=== PATIENT | female | born 1965 | race Two or more races ===

== ENCOUNTER 2016-07-22 09:21 | Inpatient (IN) | payer SELFPAY ==
[~2016-07-22 09:21] MED LIST: AMOXICILLIN500 M PO; ASPIRIN81 MG PO; AUGMENTIN 875-11 TAB PO; BACTRIM DS TABL1 TAB PO; CIPRO250 MG PO; ELAVIL25 MG PO; FLOMAX0.4 MG PO; IBUPROFEN200 MG; IBUPROFEN600 MG PO; IRON1 TA1 PO; LEVOTHYROXINE112 MC3 PO; LEVOTHYROXINE112 MCG PO; LEVOTHYROXINE125 MCG PO; LEVOXYL137 MCG PO; LEVOXYL175 MCG; MELOXICAM15 M1 PO; MUCINEX DM TABL1 BOX PO; NEXIUM20 MG PO; NO MEDS; NORCO 5-325 TA1 EACH PO; NORCO 5/325 TAB1 TAB PO; NORCO 7.5/325 T1 TAB PO; OMEPRAZOLE20 M2 PO; OMEPRAZOLE20 M3 PO; PEPCID20 M1 PO; PERCOCET 5/3251 TAB PO; PHENERGAN25 M1 PO; PHENERGAN25 MG PO; PRILOSEC40 MG PO; SYNTHROID150 MC1 PO; TRAMADOL HCL50 MG PO; TYLENOL EXTRA500 M1 PO; ZITHROMAX250 M1 PO
[2016-07-22 10:20] LABS: BASO % 0.2 % (0-2); EOS % 5.4 % (0-7); EOSINOPHIL ABSOLUTE COUNT 0.7 tho/cmm (0.0-0.7); HCT-HEMATOCRIT 42.7 % (34.0-49.0); HGB-HEMOGLOBIN 13.9 gm/dl (12.0-15.5); IMMATURE GRANULOCYTES ABSOLUTE 0.05 tho/cmm (0-0.03); IMMATURE GRANULOCYTES PERCENT 0.4 % (0-0.3); LYMPH % 24.9 % (20-45); MCH (MEAN CORPUSCULAR HGB) 26.4 pg (28.0-32.0); MCHC MEAN CORPUSCULAR HGB CONC 32.6 % (32.0-36.0); MCV (MEAN CELL VOLUME) 81.2 fl (82.0-96.0); MEAN PLATELET VOLUME 9.7 cmc (9.4-12.4); MONO % 3.8 % (0-12); MONOCYTE ABSOLUTE COUNT 0.5 tho/cmm (0.0-1.2); NEUTROPHIL ABSOLUTE COUNT 7.9 tho/cmm (1.6-8.0); NEUTROPHIL-AUTOMATED 7.9 tho/cmm (1.6-8.0); NEUTROPHILS % 65.3 % (40-80); PLATELET COUNT 413 tho/cmm (150-450); RED BLOOD COUNT 5.26 mil/cmm (4.00-5.20); RED CELL DISTRIBUTION WIDTH 17.7 % (12.4-16.4); WHITE BLOOD COUNT 12.2 tho/cmm (4.0-10.0)
[2016-07-22 10:26] LABS: ALB/GLOB RATIO 0.7 (0.8-2.0); ALBUMIN 4.4 g/dl (3.5-5.0); ALKALINE PHOSPHATASE 226 U/L (33-138); ALT/SGPT 33 U/L (12-78); ANION GAP 19 mmol/L (0-20); AST/SGOT 17 U/L (10-40); BILIRUBIN,TOTAL 0.3 mg/dl (0-1.5); BLOOD UREA NITROGEN 25 mg/dl (6-24); C-REACTIVE PROTEIN 3.2 mg/dl (0-0.9); CALCIUM 9.8 mg/dl (8.5-10.5); CARBON DIOXIDE-VENOUS 10 mmol/L (22-32); CHLORIDE 113 mmol/l (96-110); CREATININE 2.36 mg/dl (0.50-1.10); GLUCOSE 111 mg/dL (70-110); LIPASE 708 U/L (73-393); POTASSIUM 3.4 mmol/L (3.7-5.1); SODIUM 139 mmol/L (135-145); eGFR VALUE FOR BLACK 27 mL/Min
[2016-07-22] MEDS ORDERED: OMEPRAZOLE20 M3 PO (11:54)
[2016-07-22] MEDS ORDERED: PREDNISONE5 M1 PO (11:54)
[2016-07-22 14:43] LABS: MAGNESIUM 2.9 mg/dl (1.8-2.6); PHOSPHOROUS 4.3 mg/dl (2.5-4.9)
--- NOTE | 2016-07-22 21:24 | NUR ---
VIRTUAL CARE NOTE: ASSESSMENT DEFERRED. PT IS NON GEORGIAN SPEAKING. FAMILY IS PRESENT BUT BOTH ARE SLEEPING. WILL CONTINUE WITH CHART REVIEW.
[2016-07-23 06:08] LABS: BASO % 0.2 % (0-2); EOS % 7.3 % (0-7); EOSINOPHIL ABSOLUTE COUNT 0.6 tho/cmm (0.0-0.7); HGB-HEMOGLOBIN 11.2 gm/dl (12.0-15.5); IMMATURE GRANULOCYTES ABSOLUTE 0.11 tho/cmm (0-0.03); IMMATURE GRANULOCYTES PERCENT 1.4 % (0-0.3); LYMPH % 26.6 % (20-45); LYMPH ABSOLUTE COUNT 2.2 tho/cmm (0.8-4.5); MCV (MEAN CELL VOLUME) 81.9 fl (82.0-96.0); MEAN PLATELET VOLUME 9.3 cmc (9.4-12.4); MONO % 4.4 % (0-12); MONOCYTE ABSOLUTE COUNT 0.4 tho/cmm (0.0-1.2); NEUTROPHIL ABSOLUTE COUNT 4.9 tho/cmm (1.6-8.0); NEUTROPHIL-AUTOMATED 4.9 tho/cmm (1.6-8.0); NEUTROPHILS % 60.1 % (40-80); PLATELET COUNT 305 tho/cmm (150-450); RED BLOOD COUNT 4.52 mil/cmm (4.00-5.20); RED CELL DISTRIBUTION WIDTH 17.9 % (12.4-16.4); WHITE BLOOD COUNT 8.1 tho/cmm (4.0-10.0)
[2016-07-23 06:11] LABS: MCH (MEAN CORPUSCULAR HGB) 24.8 pg (28.0-32.0); MCHC MEAN CORPUSCULAR HGB CONC 30.3 % (32.0-36.0)
[2016-07-23 06:30] LABS: ALB/GLOB RATIO 0.7 (0.8-2.0); ALBUMIN 2.9 g/dl (3.5-5.0); ALKALINE PHOSPHATASE 160 U/L (33-138); ALT/SGPT 24 U/L (12-78); AMYLASE 103 U/L (20-90); ANION GAP 16 mmol/L (0-20); AST/SGOT 22 U/L (10-40); BILIRUBIN,TOTAL 0.2 mg/dl (0-1.5); BLOOD UREA NITROGEN 20 mg/dl (6-24); CALCIUM 7.9 mg/dl (8.5-10.5); CARBON DIOXIDE-VENOUS 11 mmol/L (22-32); CHLORIDE 122 mmol/l (96-110); CHOLESTEROL 153 mg/dl (120-200); GLUCOSE 80 mg/dL (70-110); HDL CHOLESTEROL 44 mg/dl (40-60); LDL CHOLESTEROL 82 mg/dl (0-99); LIPASE 615 U/L (73-393); POTASSIUM 3.4 mmol/L (3.7-5.1); SODIUM 146 mmol/L (135-145); TRIGLYCERIDES 136 mg/dl (<149); VLDL 27 mg/dl (0-30); eGFR VALUE FOR BLACK 35 mL/Min
--- NOTE | 2016-07-23 16:09 | NUR ---
VIRTAUL CARE NOTE: PT AWAKE RESTING IN BED, FAMILY AT BEDSIDE. PT/FAMILY NON-CHADIAN SPEAKING, DO NOT UNDERSTAND CHADIAN. VN ROUND DEFERRED. [employer] INTERPRETATION SYSTEM NOTED TO BE AT BEDSIDE.
[2016-07-24 07:17] LABS: BASO % 0.3 % (0-2); EOS % 6.1 % (0-7); EOSINOPHIL ABSOLUTE COUNT 0.4 tho/cmm (0.0-0.7); HCT-HEMATOCRIT 37.5 % (34.0-49.0); HGB-HEMOGLOBIN 11.6 gm/dl (12.0-15.5); IMMATURE GRANULOCYTES ABSOLUTE 0.26 tho/cmm (0-0.03); IMMATURE GRANULOCYTES PERCENT 3.7 % (0-0.3); LYMPH % 27.3 % (20-45); LYMPH ABSOLUTE COUNT 1.9 tho/cmm (0.8-4.5); MCH (MEAN CORPUSCULAR HGB) 25.2 pg (28.0-32.0); MCHC MEAN CORPUSCULAR HGB CONC 30.9 % (32.0-36.0); MCV (MEAN CELL VOLUME) 81.5 fl (82.0-96.0); MEAN PLATELET VOLUME 9.2 cmc (9.4-12.4); MONO % 3.5 % (0-12); MONOCYTE ABSOLUTE COUNT 0.3 tho/cmm (0.0-1.2); NEUTROPHIL ABSOLUTE COUNT 4.2 tho/cmm (1.6-8.0); NEUTROPHIL-AUTOMATED 4.2 tho/cmm (1.6-8.0); NEUTROPHILS % 59.1 % (40-80); PLATELET COUNT 309 tho/cmm (150-450); RED CELL DISTRIBUTION WIDTH 17.9 % (12.4-16.4); WHITE BLOOD COUNT 7.1 tho/cmm (4.0-10.0)
[2016-07-24 07:46] LABS: BLOOD UREA NITROGEN 13 mg/dl (6-24); CALCIUM 8.1 mg/dl (8.5-10.5); CARBON DIOXIDE-VENOUS 13 mmol/L (22-32); CHLORIDE 122 mmol/l (96-110); CREATININE 1.93 mg/dl (0.50-1.10); GLUCOSE 72 mg/dL (70-110); SODIUM 145 mmol/L (135-145); eGFR VALUE FOR BLACK 35 mL/Min
[2016-07-24 07:54] LABS: ANION GAP 14 mmol/L (0-20); LIPASE 819 U/L (73-393)
[2016-07-24 07:55] LABS: MAGNESIUM 2.2 mg/dl (1.8-2.6); POTASSIUM 4.1 mmol/L (3.7-5.1)
[2016-07-25 05:41] LABS: BASO % 0.2 % (0-2); EOS % 7.5 % (0-7); EOSINOPHIL ABSOLUTE COUNT 0.4 tho/cmm (0.0-0.7); HCT-HEMATOCRIT 31.2 % (34.0-49.0); HGB-HEMOGLOBIN 9.9 gm/dl (12.0-15.5); IMMATURE GRANULOCYTES ABSOLUTE 0.06 tho/cmm (0-0.03); IMMATURE GRANULOCYTES PERCENT 1.1 % (0-0.3); LYMPH % 29.7 % (20-45); LYMPH ABSOLUTE COUNT 1.6 tho/cmm (0.8-4.5); MCH (MEAN CORPUSCULAR HGB) 24.9 pg (28.0-32.0); MCHC MEAN CORPUSCULAR HGB CONC 31.7 % (32.0-36.0); MCV (MEAN CELL VOLUME) 78.6 fl (82.0-96.0); MEAN PLATELET VOLUME 8.9 cmc (9.4-12.4); MONO % 6.4 % (0-12); MONOCYTE ABSOLUTE COUNT 0.3 tho/cmm (0.0-1.2); NEUTROPHIL ABSOLUTE COUNT 2.9 tho/cmm (1.6-8.0); NEUTROPHIL-AUTOMATED 2.9 tho/cmm (1.6-8.0); NEUTROPHILS % 55.1 % (40-80); PLATELET COUNT 280 tho/cmm (150-450); RED BLOOD COUNT 3.97 mil/cmm (4.00-5.20); RED CELL DISTRIBUTION WIDTH 17.5 % (12.4-16.4); WHITE BLOOD COUNT 5.3 tho/cmm (4.0-10.0)
[2016-07-25 05:56] LABS: ALB/GLOB RATIO 0.7 (0.8-2.0); ALBUMIN 2.7 g/dl (3.5-5.0); ALKALINE PHOSPHATASE 126 U/L (33-138); ALT/SGPT 21 U/L (12-78); AST/SGOT 19 U/L (10-40); BLOOD UREA NITROGEN 8 mg/dl (6-24); CALCIUM 7.5 mg/dl (8.5-10.5); CARBON DIOXIDE-VENOUS 26 mmol/L (22-32); CHLORIDE 110 mmol/l (96-110); GLUCOSE 78 mg/dL (70-110); MAGNESIUM 1.9 mg/dl (1.8-2.6); PHOSPHOROUS 1.8 mg/dl (2.5-4.9); SODIUM 143 mmol/L (135-145); eGFR VALUE FOR BLACK 40 mL/Min
[2016-07-25 05:59] LABS: ANION GAP 10 mmol/L (0-20); BILIRUBIN,TOTAL 0.5 mg/dl (0-1.5); POTASSIUM 2.9 mmol/L (3.7-5.1)
[2016-07-25] MEDS ORDERED: TRAMADOL HCL50 M2 PO (15:09)
[2016-07-25] MEDS ORDERED: LOPERAMIDE2 M2 PO (15:10)
[2016-07-25] MEDS ORDERED: CYCLOBENZAPRINE5 M1 PO (15:10)
[2016-07-25] MEDS ORDERED: POTASSIUM CHLO20 ME3 PO (15:11)
[2016-09-10] MEDS ORDERED: [UNRECOGNIZED DRUG - REMARK] (16:19)
[2016-09-28] MEDS ORDERED: PROMETHAZINE HC25 M3 PO ×2 (18:00→18:01)
[2016-10-01] MEDS ORDERED: CEFDINIR300 M1 PO (09:36)
[2016-12-25] MEDS ORDERED: SYNTHROID125 MC1 PO (07:51)
[2016-12-25] MEDS ORDERED: MACRODANTIN50 M2 PO (07:52)
[2016-12-25] MEDS ORDERED: NORCO 5-325 TA1 EACH PO (09:15)
[2016-12-25] MEDS ORDERED: LEVAQUIN500 M1 PO (09:15)
[2016-12-25] MEDS ORDERED: FLAGYL500 M1 PO (09:15)
[2016-12-25] MEDS ORDERED: COMPAZINE10 MG PO (09:15)
== END 2016-07-25 15:40 | DRG 391 ==
LOC: EDMED 09:21 → EMR2 15:22 → 5WD 15:25
PROVIDERS: Emergency Medicine; Internal Medicine; Internal Medicine Cardiovascular Disease; ADMIT Family Medicine
PROC: 02HV33Z Insertion of Infusion Device into Superior Vena Cava, Percutaneous Approach (ICD-10-PCS; principal; 2016-07-24)
DX: A08.4 Viral intestinal infection, unspecified (principal); K85.90 Acute pancreatitis without necrosis or infection, unspecified; N17.9 Acute kidney failure, unspecified; E87.2 Acidosis; E87.1 Hypo-osmolality and hyponatremia; E87.6 Hypokalemia; D64.9 Anemia, unspecified; K21.9 Gastro-esophageal reflux disease without esophagitis; M06.9 Rheumatoid arthritis, unspecified; E89.0 Postprocedural hypothyroidism; M54.2 Cervicalgia; Z79.52 Long term (current) use of systemic steroids; F50.89 Other specified eating disorder; E66.9 Obesity, unspecified; Z68.30 Body mass index [BMI] 30.0-30.9, adult; N18.9 Chronic kidney disease, unspecified
CPT/HCPCS: C1751; J1170; J2405; J7030; J7512

== ENCOUNTER 2016-08-12 16:08 | Inpatient (IN) | payer SELFPAY ==
[~2016-08-12 16:08] MED LIST changes: +CYCLOBENZAPRINE5 M1 PO; +LOPERAMIDE2 M2 PO; +POTASSIUM CHLO20 ME3 PO; +PREDNISONE5 M1 PO; +TRAMADOL HCL50 M2 PO
[2016-08-12 16:39] LABS: BASO % 0.1 % (0-2); EOS % 2.1 % (0-7); EOSINOPHIL ABSOLUTE COUNT 0.2 tho/cmm (0.0-0.7); HCT-HEMATOCRIT 38.4 % (34.0-49.0); IMMATURE GRANULOCYTES ABSOLUTE 0.04 tho/cmm (0-0.03); IMMATURE GRANULOCYTES PERCENT 0.4 % (0-0.3); LYMPH % 16.1 % (20-45); LYMPH ABSOLUTE COUNT 1.6 tho/cmm (0.8-4.5); MCH (MEAN CORPUSCULAR HGB) 25.9 pg (28.0-32.0); MCHC MEAN CORPUSCULAR HGB CONC 31.3 % (32.0-36.0); MCV (MEAN CELL VOLUME) 82.8 fl (82.0-96.0); MEAN PLATELET VOLUME 9.4 cmc (9.4-12.4); MONO % 6.4 % (0-12); MONOCYTE ABSOLUTE COUNT 0.6 tho/cmm (0.0-1.2); NEUTROPHIL ABSOLUTE COUNT 7.6 tho/cmm (1.6-8.0); NEUTROPHIL-AUTOMATED 7.6 tho/cmm (1.6-8.0); NEUTROPHILS % 74.9 % (40-80); PLATELET COUNT 315 tho/cmm (150-450); RED BLOOD COUNT 4.64 mil/cmm (4.00-5.20); RED CELL DISTRIBUTION WIDTH 18.1 % (12.4-16.4); WHITE BLOOD COUNT 10.1 tho/cmm (4.0-10.0)
[2016-08-12 16:56] LABS: ALB/GLOB RATIO 0.6 (0.8-2.0); ALBUMIN 3.2 g/dl (3.5-5.0); ALKALINE PHOSPHATASE 186 U/L (33-138); ALT/SGPT 52 U/L (12-78); ANION GAP 15 mmol/L (0-20); AST/SGOT 44 U/L (10-40); BILIRUBIN,TOTAL 0.3 mg/dl (0-1.5); BLOOD UREA NITROGEN 16 mg/dl (6-24); CALCIUM 9.1 mg/dl (8.5-10.5); CARBON DIOXIDE-VENOUS 23 mmol/L (22-32); CHLORIDE 107 mmol/l (96-110); CREATININE 1.65 mg/dl (0.50-1.10); GLUCOSE 110 mg/dL (70-110); LIPASE 738 U/L (73-393); POTASSIUM 4.1 mmol/L (3.7-5.1); SODIUM 141 mmol/L (135-145); eGFR VALUE FOR BLACK 42 mL/Min
[2016-08-12 17:54] LABS: URINE BILIRUBIN NEGATIVE (NEG); URINE BLOOD MODERATE (NEG); URINE GLUCOSE (UA) NEGATIVE (NEG); URINE KETONE NEGATIVE (NEG); URINE LEUKOCYTE ESTERASE POSITIVE (NEG); URINE NITRITE NEGATIVE (NEG); URINE PROTEIN SMALL (NEG); URINE SPECIFIC GRAVITY 1.005 (1.003-1.030)
[2016-08-12 17:55] LABS: URINE APPEARANCE CLEAR; URINE COLOR YELLOW
[2016-08-12 18:00] LABS: URINE BACTERIA 1+
[2016-08-12 22:45] LABS: TSH-THYROID STIMULATING HORM. 0.53 uIU/ml (0.40-3.80)
[2016-08-13 05:57] LABS: BASO % 0.1 % (0-2); EOS % 4.3 % (0-7); EOSINOPHIL ABSOLUTE COUNT 0.3 tho/cmm (0.0-0.7); HCT-HEMATOCRIT 34.9 % (34.0-49.0); HGB-HEMOGLOBIN 10.5 gm/dl (12.0-15.5); IMMATURE GRANULOCYTES ABSOLUTE 0.01 tho/cmm (0-0.03); IMMATURE GRANULOCYTES PERCENT 0.1 % (0-0.3); LYMPH % 24.3 % (20-45); LYMPH ABSOLUTE COUNT 1.6 tho/cmm (0.8-4.5); MCHC MEAN CORPUSCULAR HGB CONC 30.1 % (32.0-36.0); MCV (MEAN CELL VOLUME) 83.1 fl (82.0-96.0); MEAN PLATELET VOLUME 9.3 cmc (9.4-12.4); MONO % 5.6 % (0-12); MONOCYTE ABSOLUTE COUNT 0.4 tho/cmm (0.0-1.2); NEUTROPHIL ABSOLUTE COUNT 4.4 tho/cmm (1.6-8.0); NEUTROPHIL-AUTOMATED 4.4 tho/cmm (1.6-8.0); NEUTROPHILS % 65.6 % (40-80); PLATELET COUNT 274 tho/cmm (150-450); RED CELL DISTRIBUTION WIDTH 18.2 % (12.4-16.4); WHITE BLOOD COUNT 6.8 tho/cmm (4.0-10.0)
[2016-08-13 10:58] LABS: ANION GAP 14 mmol/L (0-20); BLOOD UREA NITROGEN 12 mg/dl (6-24); CALCIUM 8.3 mg/dl (8.5-10.5); CARBON DIOXIDE-VENOUS 22 mmol/L (22-32); CHLORIDE 111 mmol/l (96-110); CREATININE 1.57 mg/dl (0.50-1.10); GLUCOSE 93 mg/dL (70-110); POTASSIUM 4.5 mmol/L (3.7-5.1); SODIUM 142 mmol/L (135-145); eGFR VALUE FOR BLACK 44 mL/Min
[2016-08-14 04:30] LABS: BASO % 0.2 % (0-2); EOS % 3.6 % (0-7); EOSINOPHIL ABSOLUTE COUNT 0.2 tho/cmm (0.0-0.7); HGB-HEMOGLOBIN 10.1 gm/dl (12.0-15.5); IMMATURE GRANULOCYTES ABSOLUTE 0.02 tho/cmm (0-0.03); IMMATURE GRANULOCYTES PERCENT 0.3 % (0-0.3); LYMPH % 28.5 % (20-45); LYMPH ABSOLUTE COUNT 1.8 tho/cmm (0.8-4.5); MCHC MEAN CORPUSCULAR HGB CONC 29.7 % (32.0-36.0); MCV (MEAN CELL VOLUME) 84.2 fl (82.0-96.0); MEAN PLATELET VOLUME 9.7 cmc (9.4-12.4); MONO % 5.9 % (0-12); MONOCYTE ABSOLUTE COUNT 0.4 tho/cmm (0.0-1.2); NEUTROPHIL ABSOLUTE COUNT 3.9 tho/cmm (1.6-8.0); NEUTROPHIL-AUTOMATED 3.9 tho/cmm (1.6-8.0); NEUTROPHILS % 61.5 % (40-80); PLATELET COUNT 288 tho/cmm (150-450); RED BLOOD COUNT 4.04 mil/cmm (4.00-5.20); RED CELL DISTRIBUTION WIDTH 18.4 % (12.4-16.4); WHITE BLOOD COUNT 6.4 tho/cmm (4.0-10.0)
[2016-08-14 04:31] LABS: ANION GAP 14 mmol/L (0-20); BLOOD UREA NITROGEN 10 mg/dl (6-24); CALCIUM 8.8 mg/dl (8.5-10.5); CARBON DIOXIDE-VENOUS 19 mmol/L (22-32); CHLORIDE 123 mmol/l (96-110); CREATININE 1.53 mg/dl (0.50-1.10); GLUCOSE 83 mg/dL (70-110); MAGNESIUM 2.4 mg/dl (1.8-2.6); POTASSIUM 4.5 mmol/L (3.7-5.1); eGFR VALUE FOR BLACK 46 mL/Min
[2016-08-14 04:41] LABS: SODIUM 151 mmol/L (135-145)
[2016-08-14 17:10] LABS: PHOSPHOROUS 3.2 mg/dl (2.5-4.9)
[2016-08-15 05:58] LABS: BASO % 0.3 % (0-2); EOS % 3.4 % (0-7); EOSINOPHIL ABSOLUTE COUNT 0.3 tho/cmm (0.0-0.7); HGB-HEMOGLOBIN 10.1 gm/dl (12.0-15.5); IMMATURE GRANULOCYTES ABSOLUTE 0.03 tho/cmm (0-0.03); IMMATURE GRANULOCYTES PERCENT 0.4 % (0-0.3); LYMPH % 29.8 % (20-45); LYMPH ABSOLUTE COUNT 2.2 tho/cmm (0.8-4.5); MCH (MEAN CORPUSCULAR HGB) 25.3 pg (28.0-32.0); MCHC MEAN CORPUSCULAR HGB CONC 30.6 % (32.0-36.0); MCV (MEAN CELL VOLUME) 82.5 fl (82.0-96.0); MEAN PLATELET VOLUME 9.6 cmc (9.4-12.4); MONO % 5.2 % (0-12); MONOCYTE ABSOLUTE COUNT 0.4 tho/cmm (0.0-1.2); NEUTROPHIL ABSOLUTE COUNT 4.5 tho/cmm (1.6-8.0); NEUTROPHIL-AUTOMATED 4.5 tho/cmm (1.6-8.0); NEUTROPHILS % 60.9 % (40-80); PLATELET COUNT 298 tho/cmm (150-450); RED CELL DISTRIBUTION WIDTH 18.1 % (12.4-16.4); WHITE BLOOD COUNT 7.3 tho/cmm (4.0-10.0)
[2016-08-15 06:04] LABS: ALB/GLOB RATIO 0.6 (0.8-2.0); ALBUMIN 2.7 g/dl (3.5-5.0); ALKALINE PHOSPHATASE 137 U/L (33-138); ALT/SGPT 53 U/L (12-78); ANION GAP 14 mmol/L (0-20); AST/SGOT 24 U/L (10-40); BILIRUBIN,TOTAL 0.2 mg/dl (0-1.5); BLOOD UREA NITROGEN 8 mg/dl (6-24); CALCIUM 8.6 mg/dl (8.5-10.5); CARBON DIOXIDE-VENOUS 20 mmol/L (22-32); CHLORIDE 112 mmol/l (96-110); GLUCOSE 93 mg/dL (70-110); POTASSIUM 4.3 mmol/L (3.7-5.1); SODIUM 142 mmol/L (135-145); eGFR VALUE FOR BLACK 47 mL/Min
[2016-08-16] MEDS ORDERED: PROMETHAZINE HC25 M3 PO (15:08)
[2016-09-10] MEDS ORDERED: [UNRECOGNIZED DRUG - REMARK] (16:19)
[2016-09-28] MEDS ORDERED: PROMETHAZINE HC25 M3 PO ×2 (18:00→18:01)
[2016-10-01] MEDS ORDERED: CEFDINIR300 M1 PO (09:36)
[2016-12-25] MEDS ORDERED: SYNTHROID125 MC1 PO (07:51)
[2016-12-25] MEDS ORDERED: MACRODANTIN50 M2 PO (07:52)
[2016-12-25] MEDS ORDERED: LEVAQUIN500 M1 PO (09:15)
[2016-12-25] MEDS ORDERED: FLAGYL500 M1 PO (09:15)
[2016-12-25] MEDS ORDERED: NORCO 5-325 TA1 EACH PO (09:15)
[2016-12-25] MEDS ORDERED: COMPAZINE10 MG PO (09:15)
== END 2016-08-16 16:35 | DRG 392 ==
LOC: EDMED 16:08 → EMR2 19:27 → 5WE 23:01
PROVIDERS: Emergency Medicine; Internal Medicine; Nurse Practitioner Acute Care; Specialist; ADMIT Family Medicine
PROC: 3E0F7GC Introduction of Other Therapeutic Substance into Respiratory Tract, Via Natural or Artificial Opening (ICD-10-PCS; principal; 2016-08-13)
PROC: 0DBL8ZX Excision of Transverse Colon, Via Natural or Artificial Opening Endoscopic, Diagnostic (ICD-10-PCS; principal; 2016-08-13)
PROC: 0DB78ZX Excision of Stomach, Pylorus, Via Natural or Artificial Opening Endoscopic, Diagnostic (ICD-10-PCS; principal; 2016-08-13)
PROC: 0DB98ZX Excision of Duodenum, Via Natural or Artificial Opening Endoscopic, Diagnostic (ICD-10-PCS; principal; 2016-08-13)
PROC: 0DBM8ZX Excision of Descending Colon, Via Natural or Artificial Opening Endoscopic, Diagnostic (ICD-10-PCS; principal; 2016-08-13)
PROC: 0DBK8ZX Excision of Ascending Colon, Via Natural or Artificial Opening Endoscopic, Diagnostic (ICD-10-PCS; principal; 2016-08-13)
PROC: 0DB68ZX Excision of Stomach, Via Natural or Artificial Opening Endoscopic, Diagnostic (ICD-10-PCS; principal; 2016-08-13)
PROC: 0DBN8ZX Excision of Sigmoid Colon, Via Natural or Artificial Opening Endoscopic, Diagnostic (ICD-10-PCS; principal; 2016-08-13)
DX: K29.60 Other gastritis without bleeding (principal); N17.9 Acute kidney failure, unspecified; K44.9 Diaphragmatic hernia without obstruction or gangrene; M06.9 Rheumatoid arthritis, unspecified; N18.9 Chronic kidney disease, unspecified; K57.30 Diverticulosis of large intestine without perforation or abscess without bleeding; E89.0 Postprocedural hypothyroidism; N20.0 Calculus of kidney
CPT/HCPCS: J0696; J2270; J2405; J2543; J3480; J7030; J7050; J7512; P9612

== ENCOUNTER 2016-09-01 06:03 | Day surgery (SDC) | payer SELFPAY ==
[~2016-09-01 06:03] MED LIST changes: +PROMETHAZINE HC25 M3 PO
[2016-09-01 07:54] LABS: INR 0.9 INR (0.9-1.1); PROTHROMBIN TIME 10.6 SECONDS (9.0-13.6)
[2016-09-10] MEDS ORDERED: [UNRECOGNIZED DRUG - REMARK] (16:19)
[2016-09-28] MEDS ORDERED: PROMETHAZINE HC25 M3 PO ×2 (18:00→18:01)
[2016-10-01] MEDS ORDERED: CEFDINIR300 M1 PO (09:36)
[2016-12-25] MEDS ORDERED: SYNTHROID125 MC1 PO (07:51)
[2016-12-25] MEDS ORDERED: MACRODANTIN50 M2 PO (07:52)
[2016-12-25] MEDS ORDERED: COMPAZINE10 MG PO (09:15)
[2016-12-25] MEDS ORDERED: FLAGYL500 M1 PO (09:15)
[2016-12-25] MEDS ORDERED: LEVAQUIN500 M1 PO (09:15)
[2016-12-25] MEDS ORDERED: NORCO 5-325 TA1 EACH PO (09:15)
== END 2016-09-01 10:47 ==
LOC: SHSB 06:03
PROVIDERS: Urology
PROC: 0T768DZ Dilation of Right Ureter with Intraluminal Device, Via Natural or Artificial Opening Endoscopic (ICD-10-PCS; principal; 2016-09-01)
DX: N20.1 Calculus of ureter (principal); M06.9 Rheumatoid arthritis, unspecified; K21.9 Gastro-esophageal reflux disease without esophagitis; N18.9 Chronic kidney disease, unspecified; E03.9 Hypothyroidism, unspecified; Z79.52 Long term (current) use of systemic steroids; Z79.899 Other long term (current) drug therapy; Z88.8 Allergy status to other drugs, medicaments and biological substances; Z87.442 Personal history of urinary calculi; Z90.49 Acquired absence of other specified parts of digestive tract; Z98.890 Other specified postprocedural states
CPT/HCPCS: C1769; C2617; J1956; J2405; Q9967

== ENCOUNTER 2016-09-16 07:02 | Day surgery (SDC) | payer SELFPAY ==
[~2016-09-16 07:02] MED LIST changes: +[UNRECOGNIZED DRUG - REMARK]
[2016-09-16 08:39] LABS: BASO % 0.3 % (0-2); EOS % 2.8 % (0-7); EOSINOPHIL ABSOLUTE COUNT 0.2 tho/cmm (0.0-0.7); HCT-HEMATOCRIT 34.6 % (34.0-49.0); HGB-HEMOGLOBIN 10.7 gm/dl (12.0-15.5); IMMATURE GRANULOCYTES ABSOLUTE 0.04 tho/cmm (0-0.03); IMMATURE GRANULOCYTES PERCENT 0.6 % (0-0.3); LYMPH ABSOLUTE COUNT 1.5 tho/cmm (0.8-4.5); MCH (MEAN CORPUSCULAR HGB) 24.9 pg (28.0-32.0); MCHC MEAN CORPUSCULAR HGB CONC 30.9 % (32.0-36.0); MCV (MEAN CELL VOLUME) 80.7 fl (82.0-96.0); MEAN PLATELET VOLUME 9.6 cmc (9.4-12.4); MONO % 6.3 % (0-12); MONOCYTE ABSOLUTE COUNT 0.4 tho/cmm (0.0-1.2); NEUTROPHIL ABSOLUTE COUNT 4.5 tho/cmm (1.6-8.0); NEUTROPHIL-AUTOMATED 4.5 tho/cmm (1.6-8.0); PLATELET COUNT 290 tho/cmm (150-450); RED BLOOD COUNT 4.29 mil/cmm (4.00-5.20); RED CELL DISTRIBUTION WIDTH 16.9 % (12.4-16.4); WHITE BLOOD COUNT 6.7 tho/cmm (4.0-10.0)
[2016-09-16 08:56] LABS: ANION GAP 16 mmol/L (0-20); BLOOD UREA NITROGEN 16 mg/dl (6-24); CALCIUM 8.6 mg/dl (8.5-10.5); CARBON DIOXIDE-VENOUS 18 mmol/L (22-32); CHLORIDE 115 mmol/l (96-110); GLUCOSE 83 mg/dL (70-110); POTASSIUM 4.5 mmol/L (3.7-5.1); SODIUM 144 mmol/L (135-145); eGFR VALUE FOR BLACK 56 mL/Min
[2016-09-16 09:51] LABS: URINE BILIRUBIN NEGATIVE (NEG); URINE BLOOD MODERATE (NEG); URINE GLUCOSE (UA) NEGATIVE (NEG); URINE KETONE NEGATIVE (NEG); URINE LEUKOCYTE ESTERASE POSITIVE (NEG); URINE NITRITE NEGATIVE (NEG); URINE PROTEIN SMALL (NEG); URINE SPECIFIC GRAVITY 1.005 (1.003-1.030)
[2016-09-16 09:57] LABS: URINE APPEARANCE CLEAR; URINE COLOR YELLOW
[2016-09-28] MEDS ORDERED: PROMETHAZINE HC25 M3 PO ×2 (18:00→18:01)
[2016-10-01] MEDS ORDERED: CEFDINIR300 M1 PO (09:36)
[2016-12-25] MEDS ORDERED: SYNTHROID125 MC1 PO (07:51)
[2016-12-25] MEDS ORDERED: MACRODANTIN50 M2 PO (07:52)
[2016-12-25] MEDS ORDERED: NORCO 5-325 TA1 EACH PO (09:15)
[2016-12-25] MEDS ORDERED: COMPAZINE10 MG PO (09:15)
[2016-12-25] MEDS ORDERED: FLAGYL500 M1 PO (09:15)
[2016-12-25] MEDS ORDERED: LEVAQUIN500 M1 PO (09:15)
== END 2016-09-16 13:50 ==
LOC: SHSB 07:02 → ORW 09:32 → PACU 10:28 → SHSB 11:20
PROVIDERS: Urology
PROC: 0T768DZ Dilation of Right Ureter with Intraluminal Device, Via Natural or Artificial Opening Endoscopic (ICD-10-PCS; principal; 2016-09-16)
PROC: 0TC08ZZ Extirpation of Matter from Right Kidney, Via Natural or Artificial Opening Endoscopic (ICD-10-PCS; 2016-09-16)
DX: N20.1 Calculus of ureter (principal); E66.9 Obesity, unspecified; M19.90 Unspecified osteoarthritis, unspecified site; E03.9 Hypothyroidism, unspecified; K21.9 Gastro-esophageal reflux disease without esophagitis; Z79.52 Long term (current) use of systemic steroids; Z79.899 Other long term (current) drug therapy; Z87.442 Personal history of urinary calculi; Z90.49 Acquired absence of other specified parts of digestive tract; Z98.890 Other specified postprocedural states
CPT/HCPCS: J1720; J1956; Q9967